=== PATIENT | female | born 1945 | race American Indian/Alaskan Native ===

== ENCOUNTER 2018-12-18 03:26 | Emergency (ER) | payer MEDICARE, MEDICAID ==
--- NOTE | 2018-12-18 07:06 | Emergency Department Report ---
ED Rash HPI - HPI Chief Complaint: Sore Throat Stated Complaint: ALLERGIC REACTION Time Seen by Provider: 12/18/18 07:02 Duration: 1 Day Location: Upper Extremities Suspected Cause: Unknown Rash Symptoms: Yes Itching, No Facial Swelling, No Tongue/Oral Swelling, No Breathing Difficulties, No Choking Sensation, No Wheezing/Dyspnea, No Peeling, No Blistering, No Fever, No Lightheaded, No Malaise, No Myalgias Severity: mild Other History: hx of idiopathic urticaria, on antihistamines + singulair. noted recurrent hives 24h ago and has a slight sore throat. no other related sx. did not use her epi pen ED Review of Systems ROS: Stated complaint: ALLERGIC REACTION Other details as noted in HPI Comment: All other systems reviewed and negative ENT: as per HPI Skin: as per HPI ED Past Medical Hx - Past Medical History Previous Medical History?: Yes Hx Hypertension: Yes - Surgical History Past Surgical History?: No Additional Surgical History: right breast biopsy jul 2018 - Social History Smoking Status: Never Smoker - Medications Home Medications: Home Medications Medication Instructions Recorded Confirmed Last Taken Type Atenolol 25 mg PO DAILY 09/16/14 09/16/14 1 Day Ago History ~09/15/14 Fexofenadine HCl 180 mg PO Q8HR PRN 09/16/14 09/16/14 1 Day Ago History ~09/15/14 Hydrochlorothiazide 25 mg PO DAILY 09/16/14 09/16/14 1 Day Ago History ~09/15/14 predniSONE [Deltasone] 20 mg PO TID #12 tab 09/16/14 Unknown Rx dexAMETHasone [Decadron] 4 mg PO Q12H #10 tablet 12/18/18 Unknown Rx Rash Exam - Exam General: Vital signs noted. No distress. Alert and acting appropriately. HEENT: No Periorbital Edema, No Conjuctival Injection, No Chemosis, No Perioral Edema, No Tongue Edema, No Uvular Edema, No Compromised Airway, No Drooling Lungs: Yes Good Air Exchange (Normal Breath Sounds), No Wheezes, No Ronchi, No Stridor, No Cough, No Labored Respirations, No Retractions, No Use of Accessory Muscles, No Other Abnormal Lung Sounds Heart: Yes Regular, No Murmur Skin: Yes Urticarial Rash (scattered to upper extremities) Other: Positive: Abdomen Normal, Neurologic Normal, Musculoskeletal Normal ED Course Vital Signs 12/18/18 03:37 Temperature 98.5 F Pulse Rate 72 Respiratory 14 Rate Blood Pressure 161/74 O2 Sat by Pulse 99 Oximetry ED Medical Decision Making - Medical Decision Making idiopathic urticaria with slight sore throat no oropharyngeal edema, exam otherwise normal has epipen, I do not see indication for use of this at present will treat with steroids and f/u as scheduled w her rn embedded this week advised if epipen used, she should return here agrees w plan - Differential Diagnosis allergic rxn, viral process Critical care attestation.: If time is entered above; I have spent that time in minutes in the direct care of this critically ill patient, excluding procedure time. ED Disposition Clinical Impression: Idiopathic urticaria Disposition: - TO HOME OR SELFCARE Is pt being admited?: No Condition: Good Instructions: Urticaria (ED) Prescriptions: dexAMETHasone [Decadron] 4 mg PO Q12H #10 tablet Referrals: OSWALD URIARTE MD [Primary Care Provider] - 3-5 Days Time of Disposition: 07:07
[2018-12-18] MEDS ORDERED: SOLU-Medrol IM ONE (07:07)
[2018-12-18 08:37] VITALS: BP 132/69
== END 2018-12-18 08:00 | disposition home or self-care (01) ==
LOC: ED 03:26
DX: L50.1 Idiopathic urticaria (principal); I10 Essential (primary) hypertension
CPT/HCPCS: 96372; 99282; J2930

== ENCOUNTER 2021-05-20 11:23 | Emergency (ER) | payer MEDICARE, MEDICAID ==
[2021-05-20 13:05] VITALS: BP 137/77
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
== END 2021-05-20 14:28 | disposition home or self-care (01) ==
LOC: ED 11:23
DX: S16.1XXA Strain of muscle, fascia and tendon at neck level, initial encounter (principal); I10 Essential (primary) hypertension; Z88.8 Allergy status to other drugs, medicaments and biological substances; Z79.899 Other long term (current) drug therapy; V87.7XXA Person injured in collision between other specified motor vehicles (traffic), initial encounter; Y93.89 Activity, other specified; Y92.488 Other paved roadways as the place of occurrence of the external cause; Y99.8 Other external cause status
CPT/HCPCS: 99282